=== PATIENT | male | born 1995 | race Caucasian/White ===

== ENCOUNTER 2018-08-05 23:01 | Inpatient (IN) | payer BC, OTHER, SELFPAY ==
[~2018-08-05] VITALS: Ht 185.4 cm; Wt 71.0 kg
[2018-08-05 23:47] LABS: HEMATOCRIT 47.2 % (42.0-52.0); HEMOGLOBIN 15.9 g/dl (13.5-17.5); MEAN CORPUSCULAR HEMOGLOBIN 30.1 pg (27.0-33.0); MEAN CORPUSCULAR HGB CONC 33.7 g/dl (32.0-36.5); MEAN CORPUSCULAR VOLUME 89.4 fl (80.0-96.0); PLATELET COUNT, AUTOMATED 267 10^3/uL (150-450); RED BLOOD COUNT 5.28 10^6/uL (4.30-6.10); WHITE BLOOD COUNT 5.6 10^3/uL (4.0-10.0)
[2018-08-06 00:30] LABS: AMPHETAMINES LEVEL URINE NEGATIVE (NEGATIVE); BARBITURATES URINE NEGATIVE (NEGATIVE); BENZODIAZEPINES URINE NEGATIVE (NEGATIVE); CANNABINOIDS URINE NEGATIVE (NEGATIVE); COCAINE METABOLITE URINE NEGATIVE (NEGATIVE); METHADONE URINE NEGATIVE (NEGATIVE); OPIATES URINE NEGATIVE (NEGATIVE); PHENCYCLIDINE URINE NEGATIVE (NEGATIVE)
[2018-08-06 00:38] LABS: ACETAMINOPHEN LEVEL < 2.0 UG/ML (10.0-30.0); ALBUMIN 4.5 GM/DL (3.2-5.2); ALT/SGPT 32 U/L (12-78); BILIRUBIN,DIRECT 0.3 MG/DL (0.0-0.2); BILIRUBIN,TOTAL 1.5 MG/DL (0.2-1.0); BLOOD UREA NITROGEN 18 MG/DL (7-18); CALCIUM LEVEL 9.2 MG/DL (8.5-10.1); CARBON DIOXIDE LEVEL 29 MEQ/L (21-32); CHLORIDE LEVEL 105 MEQ/L (98-107); ETHYL ALCOHOL (ETHANOL) < 0.003 % (0.000-0.010); GLOMERULAR FILTRATION RATE > 60.0 (>60); GLUCOSE, FASTING 84 MG/DL (70-100); POTASSIUM SERUM 3.8 MEQ/L (3.5-5.1); SALICYLATE LEVEL < 1.7 MG/DL (5.0-30.0); SODIUM LEVEL 142 MEQ/L (136-145); TOTAL PROTEIN 8.4 GM/DL (6.4-8.2)
[2018-08-06] MEDS ORDERED: MOM 30ML SUSPENSION UDC PO PRN (03:15)
[2018-08-06] MEDS ORDERED: traZODone 50 MG TAB PO PRN (03:15)
[2018-08-06] MEDS ORDERED: MAALOX 30 ML SUSP *UDC PO PRN (03:15)
[2018-08-06] MEDS ORDERED: ACETAMINOPHEN TAB 650MG DOSE (2X325MG) PO PRN (03:15)
[2018-08-06 04:12] VITALS: BP 144/96
[2018-08-06] MEDS: NICOTINE 21MG/24HR 1 EA TRANSDERMAL TD SCH (08:55)
--- NOTE | 2018-08-06 09:39 | HPEPDOC ---
[facility] Medical History & Physical Date of Admission Aug 06, 2018 History and Physical PCP: Jana Tucker MD ATTENDING: Dr. Reji Valenzuela HPI: 23yoM admitted to [facility] for unspecified depressive disorder, being medically examined today. No acute medical complaints today. Denies any fevers, chills, weakness, fatigue, DA SILVA, CP, SOB, cough, palpitations, abdominal pain, N/V/D or changes in bowel or bladder habits. 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 Tobacco use: Denies ETOH: Denies Illicit Drugs: Denies IV Drug Use: Denies Tattoos done unprofessionally: Denies FAMHX: Mother: Alive, well Father: Alive, well Siblings: One brother Alive, well Children: None Unexpected deaths due to medical reasons: None. ROS: As noted in HPI, otherwise 11pt ROS of systems reviewed and unremarkable. PE: GEN: 23 yo M, appears stated age. Well-nourished, well developed. No acute distress. Alert and oriented x 3. Pleasant, interactive. HEENT: Normocephalic, atraumatic. Pupils are equal, round, and reactive to light. Extraocular movements are intact. No nystagmus appreciated. Sclera are nonicteric. Conjunctiva without injection. Nose midline. Nasal turbinates without bogginess. EACs both patent BL. TMs both visualized and henderson with good cone of light, no bulging or erythema. No facial asymmetry. Moist mucous membran es. Dentition fair. Pharynx pink and moist, no cobblestoning. Neck supple, trachea midline. No lymphadenopathy or thyromegaly appreciated. CHEST: Regular rate and rhythm, +S1, +S2 LUNGS: Clear to auscultation bilaterally. No wheezes, rales, or rhonchi. Breathing appears symmetric and easy. Patient is speaking in full sentences. No accessory muscle use. ABD: Round, soft, non-tender, non-distended. +Bowel sounds throughout. No rebound or guarding. No costovertebral angle tenderness. EXT: Pulses 2+ bilaterally dorsalis pedis and radial. No lower extremity edema appreciated. SKIN: [place], dry, warm. Capillary refill <2sec. No rashes. NEURO: Alert and oriented x 3. Cranial nerves III-XII are intact. No focal deficits appreciated. EKG: pending A&P: 23yoM admitted to [facility] for unspecified depressive disorder 1. Psych. Plan per Psychiatry. Obtain baseline EKG to assure the safety of psychiatric medications as they can prolong the QT interval. 2. Abnormal TSH. Recheck TFTs in AM. 3. Follow up with PCP on discharge. 4. Staff member Paul present throughout exam. Vital Signs Vital Signs Date Time Temp Pulse Resp B/P (MAP) Pulse Ox O2 Delivery O2 Flow Rate FiO2 08/06/18 04:12 97.4 75 20 144/96 (112) Room Air 08/05/18 23:31 98 Laboratory Data Labs 24H Laboratory Tests 2 08/05/18 23:34: Urine Amphetamines Screen NEGATIVE, Urine Benzodiazepines Screen NEGATIVE, Urine Opiates Screen NEGATIVE, Urine Methadone Screen NEGATIVE, Urine Barbiturates Screen NEGATIVE, Urine Phencyclidine Screen NEGATIVE, Urine Cocaine Metabolite Screen NEGATIVE, Urine Cannabinoids Screen NEGATIVE 08/05/18 23:35: Nucleated Red Blood Cells % (auto) 0.0, Anion Gap 8, Glomerular Filtration Rate > 60.0, Calcium Level 9.2, Aspartate Amino Transf (AST/SGOT) 22, Alanine Aminotransferase (ALT/SGPT) 32, Alkaline Phosphatase 78, Total Bilirubin 1.5H, Direct Bilirubin 0.3H, Total Protein 8.4H, Albumin 4.5, Albumin/Globulin Ratio 1.15, Thyroid Stimulating Hormone (TSH) 4.010H, Salicylates Level < 1.7L, Acetaminophen Level < 2.0L, Ethyl Alcohol Level < 0.003 CBC/BMP Laboratory Tests 08/05/18 23:35 Red Blood Count 5.28, Mean Corpuscular Volume 89.4, Mean Corpuscular Hemoglobin 30.1, Mean Corpuscular Hemoglobin Concent 33.7, Red Cell Distribution Width 12.1 Home Medications No Active Prescriptions or Reported Meds Allergies Coded Allergies: Cephalosporins (Unverified Allergy, Intermediate, RASH, REDNESS, 08/06/18) Cephalexin (Verified Allergy, Unknown, 08/05/18) Apryl Gardner Aug 06, 2018 09:39
--- NOTE | 2018-08-06 14:28 | MHHPEPDOC ---
General Date Of Admission: Aug 06, 2018 Legal Status: 9.39 Chief Complaint "I'd be better off ". History of Present Illness HISTORY OF THE PRESENT ILLNESS: Patient is a 23 -year-old , Mennonite, male, with no previous psych history who was brought by PD to ED (mother attempted to drive pt but pt tried to grab the wheel of the car) after a meeting with orthodox elders and the medical transport specialist called by pt's mother due to pt exhibiting strange behavior and "trances" since . Family report to ED, that at meeting pt told medical transport specialist "I want to " and asked "am I saint filled or Satan filled." Per ED, PD stated pt nonverbal thru out transport to hospital and in ED pt uncooperative mostly and required prompting of brother Frederick to speak (brother appeared supportive and concerned) and brother encouraged him to pray to sooth pt and allow him to cooperate more with staff. 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 Brother had to call mother day of admission due to pt appearing to have several "trances" at work. Mother reported attempted to bring pt to therapy appt due to "trances" this past week and pt refused to go." Pt seen and having a hard time describing/explaining why he's here and how he's doing. Pt finally states that around he thought he could heard peopl e's thought's talking and that later became "a form of communication." States he doesn't feel like himself and "I just want me life back." Pt endorsing AH, thought insertion. Discussed with pt what schizophrenia is and how it's treated. Pt's ambulant about medication as against him beliefs/jainism and asking to try therapy first (provided education based on research and clinical experience that not very effective a all), call his medical transport specialist (Will provide pt with number). Denies SI/HI, hallucinations, delusions. Feels safe here. Psychiatric Review of Systems Depression (2 or more weeks): depressed mood, difficulty concentrating, appetite changes [place] (4 or more days of): denies Psychosis: auditory hallucination, delusions, paranoia, other (thought insertion) PTSD: denies Anxiety: situational anxiety, stressor related anxiety Anxiety/ 6 months or more of: restlessness, keyed up, difficulty concentrating Past Psychiatric History Previous Psychiatric Diagnosis: denies Previous Psychiatric Admissions: denies Suicide Attempts: denies Psychiatric Follow-up: denies Psychiatric medications: denies Past Medical History Medical Problems denies Head Injury: No Seizures: No Hospitalizations: No Surgeries: No Family Medical/Psychiatric HX Medical Problems noncontributory Psychiatric Disorders: No Addiction: No Suicide Attemps/Completions: No Addiction History denies Social History Childhood: born and raised [facility] by mother, has an older brother, father incarcerated when pt 18mo old (1x/yr visit; out now and only sporadic contact), close/support community and orthodox Abuse/Trauma:lives Current Living Situation: lives with family in [place] Education: high school w/in [employer] 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 Social Support: mother, brother, community, orthodox, medical transport specialist. Legal: denies Marital: single, never , never in a relationship per family(ED records family reported pt attempted to date a girl 1.5yrs ago but orthodox against it and pt doesn't like to go against the orthodox.) Mental Status Examination General Appearance: well groomed, appears stated age, hospital scubs/clothing Build: average Demeanor: withdrawn, guarded, other (scared) Eye Contact: poor Activity: anxious Behavior: cooperative, other (very anxious as completely doesn't understand illness and against jainism) Speech: clear, reg/rate,rhythm,volume, non-spontaneous Mood: anxious Mood "I want my life back" Affect: constricted, appropriate, congruent, anxious Thought Process: logical/linear, other (in conflict based on what I'm telling him about mental health and his islam beliefs) Thought Content (Delusions): paranoia, delusions, other (AH, thought insertion and broadcasting) Thought Content (Other): preoccupied, guarded, ideas of reference, internal- stimuli, appears paranoid Thought Content (Aggressive): none reported Perception (Hallucinations): auditory Perception (Other): none reported Cognition (Impairment of): attention/concentration, ability to abstract Cognition(Intelligence Est.): average Oriented: Awake, Alert, Oriented times three Insight: poor Judgment: Poor Psychosis: Abstract Thinking, Psychotic Perceptions Diagnoses Psychosis Unspecified R/O first break paranoid schizophrenia Assessment Pt with no previous psych history, raised in the [facility] community, admitted for bizarre behavior, AH, thought insertion, broadcasting, paranoia, m istrustful, impulsive behavior at home that has been getting worse since Jacque. Pt in need of mental health education (diagnosis/treatment) and medication management to improve symptoms. Pt confused regarding diagnosis and ambivalent about medication wanting to speak with medical transport specialist first. Initial Treatment Plan 1. Patient was admitted on a status. 2. Complete history was obtained. 3. With patients permission, family will be contacted and database will be expanded. 4. Patients medication regimen will be reviewed and changed accordingly. 5. Patient will be provided with protected environment. 6. Patient will be treated with individual, group, and milieu therapies. 7. Patient will receive supportive psych-education. 8. Discharge planning will commence immediately. 9. Outpatient follow-up treatment will be strongly recommended. 10. The initial treatment plan will focus initially on: * Depression. * Risk for suicide. * Substance abuse. 11. invega 3mg bid, atarax 10mg q6hr prn anxiety ESTIMATED LENGTH OF STAY: 7-9 DAYS. TIME SPENT COUNSELING AND COORDINATING INITIAL CARE: 60 minutes. Vital Signs Vital Signs Date Time Temp Pulse Resp B/P (MAP) Pulse Ox O2 Delivery O2 Flow Rate FiO2 08/06/18 04:12 97.4 75 20 144/96 (112) Room Air 08/05/18 23:31 98 Laboratory Data 24H Labs Laboratory Tests 2 08/05/18 23:34: Urine Amphetamines Screen NEGATIVE, Urine Benzodiazepines Screen NEGATIVE, Urine Opiates Screen NEGATIVE, Urine Methadone Screen NEGATIVE, Urine Barbiturates Screen NEGATIVE, Urine Phencyclidine Screen NEGATIVE, Urine Cocaine Metabolite Screen NEGATIVE, Urine Cannabinoids Screen NEGATIVE 08/05/18 23:35: Nucleated Red Blood Cells % (auto) 0.0, Anion Gap 8, Glomerular Filtration Rate > 60.0, Calcium Level 9.2, Aspartate Amino Transf (AST/SGOT) 22, Alanine Aminotransferase (ALT/SGPT) 32, Alkaline Phosphatase 78, Total Bilirubin 1.5H, Direct Bilirubin 0.3H, Total Protein 8.4H, Albumin 4.5, Albumin/Globulin Ratio 1.15, Thyroid Stimulating Hormone (TSH) 4.010H, Salicylates Level < 1.7L, Acetaminophen Level < 2.0L, Ethyl Alcohol Level < 0.003 CBC/BMP Laboratory Tests 08/05/18 23:35 Red Blood Count 5.28, Mean Corpuscular Volume 89.4, Mean Corpuscular Hemoglobin 30.1, Mean Corpuscular Hemoglobin Concent 33.7, Red Cell Distribution Width 12.1 Medications No Active Prescriptions or Reported Meds Allergies Coded Allergies: Cephalosporins (Unverified Allergy, Intermediate, RASH, REDNESS, 08/06/18) Cephalexin (Verified Allergy, Unknown, 08/05/18) LUISA THOMAS DO Aug 06, 2018 14:21
[2018-08-06 18:00] VITALS: BP 120/74
[2018-08-06] MEDS: PALIPERIDONE 3 MG ER TAB (INVEGA) PO SCH (21:19)
[2018-08-07 06:06] VITALS: BP 104/59
[2018-08-07 07:29] LABS: FREE THYROXINE INDEX 3.1 % (1.4-3.8); THYROID STIMULATING HORMONE 1.94 uIU/ML (0.358-3.740); THYROXINE (T4) 9.1 UG/DL (4.5-12.0)
[2018-08-07] MEDS: PALIPERIDONE 3 MG ER TAB (INVEGA) PO SCH ×2 (08:44→21:15)
[2018-08-07] MEDS: NICOTINE 21MG/24HR 1 EA TRANSDERMAL TD SCH (08:45)
--- NOTE | 2018-08-07 11:30 | MHIPNPDOC ---
[facility] Progress Note Progress Note DATE OF SERVICE: 08/07/18 HISTORY: Patient is a 23 -year-old , Mennonite, male, with no previous psych history who was brought by PD to ED (mother attempted to drive pt but pt tried to grab the wheel of the car) after a meeting with quaker elders and the lean specialist called by pt's mother due to pt exhibiting strange behavior and "trances" since . Family report to ED, that at meeting pt told lean specialist "I want to " and asked "am I saint filled or Satan filled." Per ED, PD stated pt nonverbal thru out transport to hospital and in ED pt uncooperative mostly and required prompting of brother Frederick to speak (brother appeared supportive and concerned) and brother encouraged him to pray to sooth pt and allow him to cooperate more with staff. 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 Brother had to call mother day of admission due to pt appearing to have several "trances" at work. Mother reported attempted to bring pt to therapy appt due to "trances" this past week and pt refused to go." Pt seen and having a hard time describing/explaining why he's here and how he's doing. Pt finally states that around he thought he could heard people's thought's talking and that later became "a form of communication." States he doesn't feel like himself and "I just want me life back." Pt endorsing AH, thought insertion. Discussed with pt what schizophrenia is and how it's treated. Pt's ambulant about medication as against him beliefs/yarsanism and asking to try therapy first (provided education based on research and clinical experience that not very effective a all), call his lean specialist (Will provide pt with number). Denies SI/HI, hallucinations, delusions. Feels safe here. VITAL SIGNS: See below. NEW TEST RESULTS: See below. CURRENT MEDICATIONS: See below. MENTAL STATUS EXAMINATION: General Appearance: well groomed, appears stated age, hospital scrubs/clothing Build: average Demeanor: cooperative and less guarded/withdrawn Eye Contact: poor Activity: less anxious Behavior: cooperative Speech: clear, reg/rate,rhythm,volume, spontaneous Mood: less anxious, improved range Mood "ok" Affect: appropriate, congruent, less anxious Thought Process: logical/linear, other (less in conflict based on what I'm tell ing him about mental health and his anglican beliefs) Thought Content (Delusions): less paranoia and delusions, other (improved AH, thought insertion and broadcasting) Thought Content (Other): less guarded, less internal-stimuli, less paranoid Thought Content (Aggressive): none reported Perception (Hallucinations): improved auditory Perception (Other): none reported Cognition (Impairment of): none reported Cognition(Intelligence Est.): average Oriented: Awake, Alert, Oriented times three Insight: fair Judgment: fair Psychosis: Improved Psychotic Perceptions DIAGNOSES: Psychosis Unspecified R/O first break paranoid schizophrenia ASSESSMENT:Pt compliant with invega. Pt seen and states that he's feeling better, more calm and able to think more clearly. Denies AH and doesn't appear to be responding to internal stimuli. Is tolerating invega, denies side effects, feels it's beneficial. States his mother and brother visited him yesterday which was nice. Read edu material regarding schizophrenia and treatment that he was provided yesterday and states was helpful to learn that he's not the only one making him feel less tormented by previous thoughts feelings, but comforted by that fact others experience the same thing he is. States he slept well last night. He is attending groups, socializing, and playing games with peers that he's finding helpful. 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 When asked pt about his experience he said it was good and that he liked helping others, denied any negative effects from it. Mother is very supportive of pt and his treatment/meds. He denies insomnia, SI/HI. Pt feels safe here. MANAGEMENT PLAN: continue current plan Medications: invega 3mg bid atarax 10mg q6hr prn anxiety TIME SPENT: 30 minutes. Vital Signs Vital Signs Date Time Temp Pulse Resp B/P (MAP) Pulse Ox O2 Delivery O2 Flow Rate FiO2 08/07/18 06:06 97.4 55 14 104/59 (74) Room Air 08/05/18 23:31 98 Laboratory Data 24H Labs Laboratory Tests 2 08/07/18 06:38: Thyroid Stimulating Hormone (TSH) 1.940, Free Thyroxine Index 3.1, Thyroxine ( T4) 9.1, Triiodothyronine (T3) Uptake 34 Current Medications Current Medications Acetaminophen (Tylenol Tab) 650 mg Q6HP PRN PO HEADACHE or DISCOMFORT; Start 08/06/18 at 03:15 Al Hydrox/Mg Hydrox/Simethicone (Mylanta) 30 ml Q4HP PRN PO HEARTBURN/INDIGESTION; Start 08/06/18 at 03:15 Home Med (Med Rec Complete!) ASDIRECTED XX ; Start 08/06/18 at 03:15; Stop 08/06/18 at 03:19; Status DC Magnesium Hydroxide (Milk Of Magnesia) 30 ml DAILYPRN PRN PO CONSTIPATION; Start 08/06/18 at 03:15 Nicotine (Nicoderm Cq 21mg) 1 patch DAILY TD ; Start 08/06/18 at 09:00; Stop 08/07/18 at 08:59; Status DC Paliperidone (Invega) 3 mg QAM PO Last administered on 08/07/18at 08:44; Start 08/07/18 at 09:00 Paliperidone (Invega) 3 mg QHS PO Last administered on 08/06/18at 21:19; Start 08/06/18 at 21:00 Trazodone HCl (Desyrel) 50 mg QHSP PRN PO INSOMNIA; Start 08/06/18 at 03:15 Allergies Coded Allergies: Cephalosporins (Unverified Allergy, Intermediate, RASH, REDNESS, 08/06/18) Cephalexin (Verified Allergy, Unknown, 08/05/18) LUISA THMOAS DO Aug 07, 2018 11:30
[2018-08-07 18:00] VITALS: BP 131/81
--- NOTE | 2018-08-07 21:48 | ECGEPIP ---
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 Electronically Signed On 08-07-2018 21:48:10 EST by Javed Gallardo
[2018-08-08 06:00] VITALS: BP 126/60
[2018-08-08] MEDS: PALIPERIDONE 3 MG ER TAB (INVEGA) PO SCH ×2 (08:55→21:42)
--- NOTE | 2018-08-08 17:44 | MHIPN ---
DATE: 08/08/2018 CHIEF COMPLAINT: Says feels better. SUBJECTIVE: Seen for followup, he is seen in the presence of staff. Says feels better, and that last night went well, he says his sleep has improved, appetite is good, suggests appetite was essentially unchanged. Says the voices that he has heard have diminished, he says they have diminished quite considerably, and that he recognizes them as "not real." They have been those associated with people he knows, and says could hear them or feel them, talk negatively about him, and others would talk positively. He says he had felt they were able to control his thoughts, but no longer feels so, says matters changed when he began recognizing that they were "not real." Says could hear the lord as well as the devil, and with further inquiry, suggested that did not hear them literally, but in the context of the people he knew, who he thought could read into his thoughts. Did not describe any thought broadcasting on his part. Says has not been well for the last month or so, but feels better now. Prior to these difficulties, says did well, had no major emotional problems. MENTAL STATUS EXAMINATION: He is neat, he is cooperative. There is no agitation, no psychomotor retardation. Good eye contact. Affect broad, appears relaxed. Denies any suicidal thoughts or intents. No homicidal ideas or intents. At present does not appear to be internally preoccupied, no firm delusional ideations elicited. Cognition grossly intact. Judgment and insight remain compromised. ASSESSMENT: Unspecified psychotic disorder. Rule out brief psychotic disorder. It is possible the patient does not have a primary psychotic disorder, it is too soon to tell, just given this history, and the review of the chart. Brief psychotic disorder would also need to be considered. Schizophrenia is a possibility, but these symptoms are quite new, seemingly, and his premorbid functioning has been quite good. There is no known family history, though unsure of father's side for the history. The nature of the hallucinations versus aspect of thought insertion were difficult to differentiate at times. PLAN: Continue current care, observations, obtain collateral information, and I would suggest considering eventually decreasing the Invega, and reassessing its indications. He is currently on Invega at 6 mg a day in divided doses. Encourage his participation in activities in the unit. Upon discharge, patient will have to be followed closely, and reassessed for the possibility of tapering and discontinuing the antipsychotic. Vital signs: Blood pressure 126/60, pulse 62, temperature 98.2.
[2018-08-08 18:00] VITALS: BP 120/70
[2018-08-09 06:00] VITALS: BP 117/68
[2018-08-09] MEDS: PALIPERIDONE 3 MG ER TAB (INVEGA) PO SCH ×2 (09:08→21:49)
[2018-08-09 18:00] VITALS: BP 126/74
[2018-08-10 06:07] VITALS: BP 109/65
[2018-08-10] MEDS: PALIPERIDONE 3 MG ER TAB (INVEGA) PO SCH ×2 (08:08→22:00)
--- NOTE | 2018-08-10 09:35 | MHIPN ---
DATE: 08/06/2018 CHIEF COMPLAINT: Says she is okay. SUBJECTIVE: Seen for follow-up, indicates had a good night, his mood has been good, feels less anxious, says had a total of about eight visitors, family as well as extended family, says that went well. Says has not had any experiences of the past, sensations that others are inserting thoughts in him, but does say that that may have had happened to a mild extent, but he was able to push the thought aside. MENTAL STATUS EXAMINATION Neat and cooperative. No agitation. He is coherent. Affect reactive, broad. No evidence of any thoughts of harming himself or anyone else, he does not appear to be internally preoccupied at present, cognition grossly intact. Judgment and insight fair, thought possibly still compromised. ASSESSMENT: Unspecified psychotic disorder. Rule out brief psychotic disorder. Rule out major depression with psychosis. PLAN: Continue current care and observation. He will see the treatment team as well as the psychiatrist tomorrow. He is to be encouraged to participate in activities in the unit. VITAL SIGNS: These are as listed. Blood pressure 117/68, pulse 63, temperature 98.
--- NOTE | 2018-08-10 09:54 | MHIPNPDOC ---
[facility] Progress Note Progress Note DATE OF SERVICE: 08/10/18 HISTORY: Patient is a 23 -year-old , Mennonite, male, with no previous psych history who was brought by PD to ED (mother attempted to drive pt but pt tried to grab the wheel of the car) after a meeting with lutheran elders and the javascript application developer called by pt's mother due to pt exhibiting strange behavior and "trances" since . Family report to ED, that at meeting pt told javascript application developer "I want to " and asked "am I saint filled or Satan filled." Per ED, PD stated pt nonverbal thru out transport to hospital and in ED pt uncooperative mostly and required prompting of brother Frederick to speak (brother appeared supportive and concerned) and brother encouraged him to pray to sooth pt and allow him to cooperate more with staff. 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 Brother had to call mother day of admission due to pt appearing to have several "trances" at work. Mother reported attempted to bring pt to therapy appt due to "trances" this past week and pt refused to go." Pt seen and having a hard time describing/explaining why he's here and how he's doing. Pt finally states that around he thought he could heard people's thought's talking and that later became "a form of communication." States he doesn't feel like himself and "I just want me life back." Pt endorsing AH, thought insertion. Discussed with pt what schizophrenia is and how it's treated. Pt's ambulant about medication as against him beliefs/moravian and asking to try therapy first (provided education based on research and clinical experience that not very effective a all), call his javascript application developer (Will provide pt with number). Denies SI/HI, hallucinations, delusions. Feels safe here. VITAL SIGNS: See below. NEW TEST RESULTS: See below. CURRENT MEDICATIONS: See below. MENTAL STATUS EXAMINATION: General Appearance: well groomed, appears stated age, hospital scrubs/clothing Build: average Demeanor: cooperative Eye Contact: fair Activity: calm Behavior: cooperative Speech: clear, reg/rate,rhythm,volume, spontaneous Mood: l improved range Mood "ok" Affect: appropriate, congruent Thought Process: logical/linear Thought Content (Delusions): denies paranoia and delusions, other (denies AH, thought insertion and broadcasting) Thought Content (Other): none reported Thought Content (Aggressive): none reported Perception (Hallucinations): none reported Perception (Other): none reported Cognition (Impairment of): none reported Cognition(Intelligence Est.): average Oriented: Awake, Alert, Oriented times three Insight: fair Judgment: fair Psychosis: Improved Psychotic Perceptions DIAGNOSES: Psychosis Unspecified R/O first break paranoid schizophrenia ASSESSMENT:Pt compliant with invega. Pt seen and states that he's doing well, had a good weekend with family visitors and playing chess with another peer pt on the unit. Denies AH and doesn't appear to be responding to internal stimuli. Is tolerating invega, denies side effects, feels it's beneficial. States he slept well last night. He is attending groups, socializing, and playing games with peers that he's finding helpful. Mother is very supportive of pt and his treatment/meds. He denies insomnia, SI/HI. Pt feels safe here. MANAGEMENT PLAN: continue current plan Medications: invega 3mg bid atarax 10mg q6hr prn anxiety TIME SPENT: 30 minutes. Vital Signs Vital Signs Date Time Temp Pulse Resp B/P (MAP) Pulse Ox O2 Delivery O2 Flow Rate FiO2 08/10/18 06:07 97.2 57 12 109/65 (80) Room Air 08/05/18 23:31 98 Current Medications Current Medications Acetaminophen (Tylenol Tab) 650 mg Q6HP PRN PO HEADACHE or DISCOMFORT; Start 08/06/18 at 03:15 Al Hydrox/Mg Hydrox/Simethicone (Mylanta) 30 ml Q4HP PRN PO HEARTBURN/INDIGESTION; Start 08/06/18 at 03:15 Home Med (Med Rec Complete!) ASDIRECTED XX ; Start 08/06/18 at 03:15; Stop 08/06/18 at 03:19; Status DC Magnesium Hydroxide (Milk Of Magnesia) 30 ml DAILYPRN PRN PO CONSTIPATION; Start 08/06/18 at 03:15 Nicotine (Nicoderm Cq 21mg) 1 patch DAILY TD ; Start 08/06/18 at 09:00; Stop 08/07/18 at 08:59; Status DC Paliperidone (Invega) 3 mg QAM PO Last administered on 08/10/18at 08:08; Start 08/07/18 at 09:00 Paliperidone (Invega) 3 mg QHS PO Last administered on 08/09/18at 21:49; Start 08/06/18 at 21:00 Trazodone HCl (Desyrel) 50 mg QHSP PRN PO INSOMNIA; Start 08/06/18 at 03:15 Allergies Coded Allergies: Cephalosporins (Unverified Allergy, Intermediate, RASH, REDNESS, 08/06/18) Cephalexin (Verified Allergy, Unknown, 08/05/18) LUISA THOMAS DO Aug 10, 2018 9:54 am
[2018-08-10 18:00] VITALS: BP 122/62
[2018-08-11 06:43] VITALS: BP 104/55
[2018-08-11] MEDS: PALIPERIDONE 3 MG ER TAB (INVEGA) PO SCH ×2 (09:16→20:59)
[2018-08-11 18:00] VITALS: BP 106/58
[2018-08-12 06:34] VITALS: BP 95/50
[2018-08-12] MEDS: PALIPERIDONE 3 MG ER TAB (INVEGA) PO SCH (09:12)
--- NOTE | 2018-08-12 09:19 | MHDSPDOC ---
[facility] Discharge Summary Discharge Summary DATE OF ADMISSION: Aug 06, 2018 at 3:11 am DATE OF DISCHARGE: Aug 12, 2018 DISCHARGE DIAGNOSES: Psychosis Unspecified R/O first break paranoid schizophrenia REASON FOR ADMISSION: Patient is a 23 -year-old , Mennonite, male, with no previous psych history who was brought by PD to ED (mother attempted to drive pt but pt tried to grab the wheel of the car) after a meeting with jewish elders and the facilities director called by pt's mother due to pt exhibiting strange behavior and "trances" since . Family report to ED, that at meeting pt told facilities director "I want to " and asked "am I saint filled or Satan filled." Per ED, PD stated pt nonverbal thru out transport to hospital and in ED pt uncooperative mostly and required prompting of brother Frederick to speak (brother appeared supportive and concerned) and brother encouraged him to pray to sooth pt and allow him to cooperate more with staff. 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 Brother had to call mother day of admission due to pt appearing to have several "trances" at work. Mother reported attempted to bring pt to therapy appt due to "trances" this past week and pt refused to go." Pt seen and having a hard time describing/explaining why he's here and how he's doing. Pt finally states that around he thought he could heard people's thought's talking and that later became "a form of communication." States he doesn't feel like himself and "I just want me life back." Pt endorsing AH, thought insertion. Discussed with pt what schizophrenia is and how it's treated. Pt's ambulant about medication as against him belie fs/lutheran and asking to try therapy first (provided education based on research and clinical experience that not very effective a all), call his facilities director (Will provide pt with number). Denies SI/HI, hallucinations, delusions. Feels safe here. CONSULTANTS INVOLVED: none TREATMENT AND PROGRESS ON THE UNIT : Pt was admitted to [facility], seen for psychiatric assessment and invega 3mg bid for psychosis. He tolerated his invega well and felt it was beneficial. Stated he liked it and would remain compliant on it. He declined invega sustenna when it was offered to him numerous times and mother contacted by d/c order planner and stated she would make sure he was compliant on it after discharge. He was provided vistaril 10mg q6hr prn anxiety and trazodone 50mg qhs prn insomnia. Pt found his medications beneficial and tolerated them well. He attended groups daily during his stay. His symptoms improved with treatment. On day of discharge he denied depression, anxiety, insomnia, SI/HI, hallucinations, delusions. He was discharged home after family meeting with his mother with follow-up at [facility]. He felt safe for discharge. DISCHARGE ASSESSMENT: Pt compliant with invega. Pt seen and states that he's doing well, and looking forward to going home with his mother today. Denies AH and doesn't appear to be responding to internal stimuli. Is tolerating invega, denies side effects, feels it's beneficial. Agreeable to maintaining compliance. States he slept well last night. He is attending groups, socializing, and playing games with peers that he's finding helpful. Mother is very supportive of pt and his treatment/meds. He denies epression, anxiety, insomnia, SI/HI, hallucinations, delusions, paranoia. Pt feels safe to be discharged home with his mother. MENTAL STATUS EXAMINATION ON DISCHARGE: General Appearance: well groomed, appears stated age, hospital scrubs/clothing Build: average Demeanor: cooperative Eye Contact: good Activity: calm Behavior: cooperative Speech: clear, reg/rate,rhythm,volume, spontaneous Mood: euthymic, full, bright Mood "good" Affect: appropriate, congruent, euthymic, bright Thought Process: logical/linear Thought Content (Delusions): none reported, denies paranoia and delusions, other (denies AH, thought insertion and broadcasting) Thought Content (Other): none reported Thought Content (Aggressive): none reported Perception (Hallucinations): none reported Perception (Other): none reported Cognition (Impairment of): none reported Cognition(Intelligence Est.): average Oriented: Awake, Alert, Oriented times three Insight: good Judgment: good Psychosis: none reported MEDICATIONS ON DISCHARGE: invega 3mg bid atarax 10mg q6hr prn anxiety PLAN/FOLLOWUP ARRANGEMENTS: D/c home with his mother with follow-up at [facility]. The amount of time spent in the coordination of care for this patient was approximately 30 minutes. Vital Signs/I&Os Vital Signs Date Time Temp Pulse Resp B/P (MAP) Pulse Ox O2 Delivery O2 Flow Rate FiO2 08/12/18 06:34 98.2 59 12 95/50 (65) 08/10/18 06:07 Room Air Medications No Active Prescriptions or Reported Meds Allergies Coded Allergies: Cephalosporins (Unverified Allergy, Intermediate, RASH, REDNESS, 08/06/18) Cephalexin (Verified Allergy, Unknown, 08/05/18) LUISA THOMAS DO Aug 12, 2018 9:19 am
[2018-08-12] MEDS ORDERED: PALI1TAB2 PO (09:22)
[2018-08-12] MEDS ORDERED: RISP2TAB3 PO (14:59)
== END 2018-08-12 14:45 | disposition home or self-care (01) | DRG 751 ==
LOC: M ED 23:01 → M ED INP 08-06 03:11 → M PSY 08-06 03:55
PROVIDERS: ADMIT Psychiatry & Neurology Psychiatry; ATTEND Psychiatry & Neurology Psychiatry
DX: F29 Unspecified psychosis not due to a substance or known physiological condition (principal); F20.0 Paranoid schizophrenia; Z88.1 Allergy status to other antibiotic agents

== ENCOUNTER 2019-06-15 17:53 | Inpatient (IN) | payer SELFPAY ==
[~2019-06-15] VITALS: Ht 182.9 cm; Wt 75.0 kg
[~2019-06-15 17:53] MED LIST: PALI1TAB2 PO; RISP2TAB3 PO
[2019-06-15 18:58] LABS: HEMATOCRIT 45.5 % (42.0-52.0); MEAN CORPUSCULAR HEMOGLOBIN 30.7 pg (27.0-33.0); MEAN CORPUSCULAR HGB CONC 35.2 g/dl (32.0-36.5); MEAN CORPUSCULAR VOLUME 87.2 fl (80.0-96.0); PLATELET COUNT, AUTOMATED 222 10^3/uL (150-450); RED BLOOD COUNT 5.22 10^6/uL (4.30-6.10); WHITE BLOOD COUNT 5.5 10^3/uL (4.0-10.0)
[2019-06-15 19:32] LABS: ALBUMIN 4.2 GM/DL (3.2-5.2); ALT/SGPT 36 U/L (12-78); BILIRUBIN,DIRECT 0.4 MG/DL (0.0-0.2); BILIRUBIN,TOTAL 2.2 MG/DL (0.2-1.0); BLOOD UREA NITROGEN 18 MG/DL (7-18); CALCIUM LEVEL 8.9 MG/DL (8.5-10.1); CARBON DIOXIDE LEVEL 26 MEQ/L (21-32); CHLORIDE LEVEL 105 MEQ/L (98-107); CREATININE FOR GFR 1.27 MG/DL (0.70-1.30); GLOMERULAR FILTRATION RATE > 60.0 (>60); GLUCOSE, FASTING 81 MG/DL (70-100); POTASSIUM SERUM 3.7 MEQ/L (3.5-5.1); SODIUM LEVEL 140 MEQ/L (136-145); TOTAL PROTEIN 7.6 GM/DL (6.4-8.2)
[2019-06-15 19:33] LABS: ACETAMINOPHEN LEVEL < 2.0 UG/ML (10.0-30.0); ETHYL ALCOHOL (ETHANOL) < 0.003 % (0.000-0.010); SALICYLATE LEVEL < 1.7 MG/DL (5.0-30.0)
[2019-06-15 20:57] LABS: AMPHETAMINES LEVEL URINE NEGATIVE (NEGATIVE); BARBITURATES URINE NEGATIVE (NEGATIVE); BENZODIAZEPINES URINE NEGATIVE (NEGATIVE); CANNABINOIDS URINE NEGATIVE (NEGATIVE); COCAINE METABOLITE URINE NEGATIVE (NEGATIVE); METHADONE URINE NEGATIVE (NEGATIVE); OPIATES URINE NEGATIVE (NEGATIVE); PHENCYCLIDINE URINE NEGATIVE (NEGATIVE)
[2019-06-15] MEDS ORDERED: ACETAMINOPHEN TAB 650MG DOSE (2X325MG) PO PRN (23:45)
[2019-06-15] MEDS ORDERED: MOM 30ML SUSPENSION UDC PO PRN (23:45)
[2019-06-15] MEDS ORDERED: MAALOX 30 ML SUSP *UDC PO PRN (23:45)
[2019-06-15] MEDS ORDERED: traZODone 50 MG TAB PO PRN (23:45)
[2019-06-16 06:32] VITALS: BP 106/57
--- NOTE | 2019-06-16 10:21 | MHHPEPDOC ---
[facility] History & Physical History and Physical DATE OF ADMISSION: Jun 15, 2019 at 23:37 New Patient Willian Mclean MRN: N/A Date of : N/A Date of Service: 06/16/2019 Chief Complaint "God bless you." History of Present Illness The patient a 24-year-old man who was brought in after presenting somewhat bizarrely. He has a history of schizophrenia and was notably saying suicidal statements and laying in the snow in a bizarre display. He was brought in and ad mitted. On initial presentation when I had met with him, he was fairly well put together and described the situation as him becoming "angry." He had been very amenable in the unit friendly and sociable. He does at times have some bizarre thoughts; however, he reports that he is not interested in treatment and has not demonstrated any dangerousness or distorted ideation to us on the unit. The patient stated that he had had voices in the past, but he is not currently having them and that he does have at time some low mood, but is not sustained and screen is negative for depression. Review Of Systems Depression: The patient denies any episodes of unprovoked depressed mood associated with neurovegetative symptoms lasting longer than 2 weeks with symptoms present nearly everyday. Anxiety: The patient denies any excessive worry associated with physical symptoms. They deny any experience of discreet panic in the past. [place]: The patient denies any episodes of euphoria/dysphoria associated with decreased need for sleep, hedonism, talkatively or impulsivity lasting longer than 5 days. Psychotic: Reports as above. Trauma: The patient denies any traumatic events associated with nightmares or intrusive thoughts. Borderline: The patient screens negative for borderline personality at this junction. Past Psychiatric History One previous inpatient admission, diagnosis of schizophrenia, on no current meds, denies any suicide attempts. Allergies Please see below. Family Psychiatric History The patient denies/is unaware any history of mental health history including addictions and suicide. Social History The patient is a never man with no children. He is part of the [place] community, very religiously connected, lives with 2 other roommates. He currently works. He had completed high school as gainfully employed. He has good relationship with his mother and father who live in [place] and states that he has good relationships with his one older brother. No history of trauma or abuse that he notes. Substance Abuse History The patient denies any excessive alcohol use, tobacco or illicit drug use, denies history of substance use treatment. Medical History Patient has no significant past medical history. Mental Status Examination General: Well dressed with good hygiene Speech: Spontaneous and fluid Thought processes: Linear and logical MSK: Smooth and coordinated gait, no signs of tremors or involuntary orofacial movements Thought content: Future orientated Abstract reasoning, and computation: Intact Description of associations: Intact Description of abnormal or psychotic thoughts: Denies any suicidal or homicidal ideation. Denies any auditory or visual hallucinations. Does not appear to be responding to internal stimuli. Does not appear to be endorsing any bizarre or paranoid ideation. Judgment: fair Insight: fair Orientation: Alert and orientated 3 Cognition: Grossly normal Recent and remote memory: Intact Attention span and concentration: Intact Fund of knowledge: Adequate Mood: "okay" Affect: Euthymic with a full range Diagnoses Unspecified psychotic disorder. Assessment and Plan Unspecified psychotic: The patient reports that he is not interested in treatment. He does not have any aggressive behaviors or any signs or symptoms that can be used against him in order for a treatment of our objection. He does not wish to say and at this time does not meet involuntary criteria for extension of his admission under any sense as he has been fairly well behaved and put together on our unit. Disposition Discharge tomorrow. Problem List 1. Altered thoughts. Initial Treatment Plan 1. Patient was admitted on a 9.39 legal status. 2. Complete history was obtained. 3. With patients permission, family will be contacted and database will be expanded. 4. Patients medication regimen will be reviewed and changed accordingly. 5. Patient will be provided with protected environment. 6. Patient will be treated with individual, group, and milieu therapies. 7. Patient will receive supportive psych-education. 8. Discharge planning will commence immediately. 9. Outpatient follow-up treatment will be strongly recommended. 10. The initial treatment plan will focus initially on: Estimated Length Of Stay 2 days. Time Spent 70 minutes. Friday Vital Signs Vital Signs Date Time Temp Pulse Resp B/P (MAP) Pulse Ox O2 Delivery O2 Flow Rate FiO2 06/16/19 08:13 Room Air 06/16/19 06:32 97.5 61 12 106/57 (73) 06/15/19 23:18 98 Laboratory Data 24H Labs Laboratory Tests 2 06/15/19 18:43: Nucleated Red Blood Cells % (auto) 0.0, Anion Gap 9, Glomerular Filtration Rate > 60.0, Calcium Level 8.9, Total Bilirubin 2.2H, Direct Bilirubin 0.4H, Aspartate Amino Transf (AST/SGOT) 29, Alanine Aminotransferase (ALT/SGPT) 36, Alkaline Phosphatase 78, Total Protein 7.6, Albumin 4.2, Albumin/Globulin Ratio 1.24, Thyroid Stimulating Hormone (TSH) 1.170, Salicylates Level < 1.7L, Acetaminophen Level < 2.0L, Ethyl Alcohol Level < 0.003 06/15/19 20:12: Urine Opiates Screen NEGATIVE, Urine Methadone Screen NEGATIVE, Urine Barbiturates Screen NEGATIVE, Urine Phencyclidine Screen NEGATIVE, Urine Amphetamines Screen NEGATIVE, Urine Benzodiazepines Screen NEGATIVE, Urine Cocaine Metabolite Screen NEGATIVE, Urine Cannabinoids Screen NEGATIVE CBC/BMP Laboratory Tests 06/15/19 18:43 Medications No Active Prescriptions or Reported Meds Allergies Coded Allergies: cephalexin (Verified Allergy, Mild, rash/redness, 06/15/19) MALKA MULLIGAN DO Jun 16, 2019 10:21
--- NOTE | 2019-06-16 18:47 | HPE ---
DATE OF ADMISSION: 06/16/2019 CHIEF COMPLAINT: Admitted to inpatient mental health unit for depression, suicidal ideation. HISTORY OF PRESENT ILLNESS: This is a 24-year-old male with no medical history, admitted previously for depression, suicidal ideation, now with recurrent admission. He has no complaints. No fever or chills, weight gain or weight loss, changes in appetite, eye pain, discharge, diplopia, blurred vision, no nasal congestion or rhinorrhea. Denies ear pain, discharge, tinnitus, sore throat, cough, fever, chills, shortness of breath, chest pain, pressure, tightness, lightheadedness, or dizziness. Sadiq any nausea, vomiting, diarrhea, abdominal pain, constipation, upper or lower extremity weakness. Admits to having depression and a history of suicidal ideation. Denies dysuria, urgency, frequency. PAST MEDICAL HISTORY: 1. Depression. 2. Suicidal ideation. PAST SURGICAL HISTORY: None. SOCIAL HISTORY: He lives in [facility]. Single, Previously worked in [email or web address]. Denies illicit drug use, tobacco, or recreational drug use. FAMILY HISTORY: Mother and father are in the 40s, alive and well. No medical problems. HOSPITAL MEDICATIONS: - trazodone 50 mg at bedtime as needed for insomnia - acetaminophen 650 every 6 as needed for headache - milk of magnesia 30 mL daily as needed for constipation - Mylanta 30 mL by mouth every 4 hours for heartburn and indigestion REVIEW OF SYSTEMS: Per history of present illness (HPI). A 12-point system otherwise negative. PHYSICAL EXAMINATION: Temperature 97.5, pulse 61, respiratory rate 12, blood pressure 106/57, 98% on room air. GENERAL: Patient is awake, alert, oriented times three, answering questions appropriately. He has no icterus, jaundice. LUNGS: Clear to auscultation. No wheezes, rales, or rhonchi. HEART: S1, S2, sinus rhythm. ABDOMEN: Soft, nontender, nondistended. Positive bowel sounds times four quadrants. No rebound. No guarding. EXTREMITIES: No clubbing, cyanosis, or any pitting edema. LABORATORY DATA: On June 15, white count 5.5, hemoglobin 16, hematocrit 45, platelet count 222. Sodium 140, potassium 3.7, chloride 105, bicarbonate 26, BUN 18, creatinine 1.27, glucose 81, calcium 8.9. Total bilirubin 2.2, direct bilirubin 0.4, AST 29, ALT 36, alkaline phosphatase 78, total bilirubin 7.6, albumin 4.2, TSH 1.170. ASSESSMENT AND PLAN: This is a 24-year-old male with a history of suicidal ideation and depression, admitted for the same. Noted incidentally to have elevated bilirubin, direct and total, with no complaints of abdominal pain, nausea or vomiting, decrease in appetite. ACUTE ISSUES: 1. Depression, managed by psychiatrist. 2. Suicidal ideation, currently admitted to inpatient mental health unit. Currently on trazodone for insomnia. 3. Abnormal liver function tests with elevated bilirubin. Patient currently denies any nausea, vomiting, epigastric pain. Will continue to monitor. No signs of anemia to suspect any hemolysis. Monitor for symptoms of abdominal pain, nausea, vomiting, then full workup if symptomatic. 4. Deep vein thrombosis (DVT) prophylaxis. Encourage ambulation. 5. Diet regular. MTDD
[2019-06-17 06:37] VITALS: BP 123/69
--- NOTE | 2019-06-17 09:17 | MHDSPDOC ---
[facility] Discharge Summary Discharge Summary DATE OF ADMISSION: Jun 15, 2019 at 23:37 DATE OF DISCHARGE: 06/17/19 Discharge Willian Mclean MRN: N/A Date of : N/A Date of Service: 06/17/2019 Diagnoses Unspecified psychotic disorder. History of Present Illness The patient a 24-year-old young man with a reported history of schizophrenia presents after reportedly becoming more irritable and pushing one of his coworkers. He was brought in by his boss and friend where he was admitted up in abundance of caution as he was noted to be somewhat started at times but was not admitting to any suicidal or homicidal ideation in the ER. When the patient was met, he had behaved very well on our unit and demonstrated no concerning behaviors. He was odd at times, but appeared to be able to engage in all levels of treatment, amenable and friendly. He was more the picture of amenability. He stated that he was not sure why he was here. He stated that he had gotten upset and pushed someone, but that he had had his history of schizophrenia and that since taking medications those have gone away, but had denied any auditory hallucinations. The patient was observed over the evening with no behavioral problems. He grossly denies all psychiatric symptoms at this time other than the history of psychotic symptoms. Consultants Involved Hospitalist/PCP screening Treatment and Progress On The Unit The patient was admitted and subsequently observed. He was not making any significantly bizarre statements. He was able to attend to his needs. Denied any suicidal or homicidal ideation and was well behaved on the unit. He requested to go, declined medications after discussion, was generally amenable to all interactions and said that he felt he was "fine". At the end of 48 hours, the patient did not meet involuntary criteria for extension of his admission as he denied suicidal or homicidal ideation, had a relatively normal mental status exam and did not appear to be grossly impaired by any psychiatric illness and declined further voluntary admission and thus was discharged in good citlaly. Discharge Assessment 24-year-old man with a history of psychotic illness presents with reported psychotic symptoms, however, they do not appear to be impairing him significan tly enough in order for us to detain him on an involuntary hold past 48 hours and he does not appear to be significantly impaired enough that a treatment over objection would be successful. Mental Status Examination General: Well dressed with good hygiene Speech: Spontaneous and fluid Thought processes: Linear and logical MSK: Smooth and coordinated gait, no signs of tremors or involuntary orofacial movements Thought content: Future orientated Abstract reasoning, and computation: Intact Description of associations: Intact Description of abnormal or psychotic thoughts: Denies any suicidal or homicidal ideation. Denies any auditory or visual hallucinations. Does not appear to be responding to internal stimuli. Does not appear to be endorsing any bizarre or paranoid ideation. Judgment: fair Insight: fair Orientation: Alert and orientated 3 Cognition: Grossly normal Recent and remote memory: Intact Attention span and concentration: Intact Fund of knowledge: Adequate Mood: "okay" Affect: Euthymic with a full range Follow Up The social work team worked during the predischarge meeting in order to evaluate for further issues of lethality address them fully before discharge. They worked on safety planning with the patient's family members in order to ensure that the patient will have a safe and effective discharge. Time Spent The amount of time spent in the coordination of care for this patient was approximately 60 minutes. Vital Signs/I&Os Vital Signs Date Time Temp Pulse Resp B/P (MAP) Pulse Ox O2 Delivery O2 Flow Rate FiO2 06/17/19 06:37 98.6 74 12 123/69 (87) Room Air 06/15/19 23:18 98 Medications No Active Prescriptions or Reported Meds Allergies Coded Allergies: cephalexin (Verified Allergy, Mild, rash/redness, 06/15/19) MALKA MULLIGAN DO Jun 17, 2019 09:17
== END 2019-06-17 11:25 | disposition home or self-care (01) | DRG 751 ==
LOC: M ED 17:53 → M ED INP 23:37 → M PSY 06-16 00:52
PROVIDERS: ADMIT Psychiatry & Neurology Psychiatry; ATTEND Psychiatry & Neurology Addiction Medicine
DX: F29 Unspecified psychosis not due to a substance or known physiological condition (principal); Z86.59 Personal history of other mental and behavioral disorders; Z88.1 Allergy status to other antibiotic agents; F32.9 Major depressive disorder, single episode, unspecified; R94.5 Abnormal results of liver function studies

== ENCOUNTER 2019-07-02 19:21 | Emergency (ER) | payer MEDICAID ==
[2019-07-02 20:13] LABS: HEMATOCRIT 46.9 % (42.0-52.0); HEMOGLOBIN 15.4 g/dl (13.5-17.5); MEAN CORPUSCULAR HEMOGLOBIN 29.9 pg (27.0-33.0); MEAN CORPUSCULAR HGB CONC 32.8 g/dl (32.0-36.5); MEAN CORPUSCULAR VOLUME 91.1 fl (80.0-96.0); PLATELET COUNT, AUTOMATED 271 10^3/uL (150-450); RED BLOOD COUNT 5.15 10^6/uL (4.30-6.10); WHITE BLOOD COUNT 5.8 10^3/uL (4.0-10.0)
[2019-07-02 20:37] LABS: AMPHETAMINES LEVEL URINE NEGATIVE (NEGATIVE); BARBITURATES URINE NEGATIVE (NEGATIVE); BENZODIAZEPINES URINE NEGATIVE (NEGATIVE); CANNABINOIDS URINE NEGATIVE (NEGATIVE); COCAINE METABOLITE URINE NEGATIVE (NEGATIVE); METHADONE URINE NEGATIVE (NEGATIVE); OPIATES URINE NEGATIVE (NEGATIVE); PHENCYCLIDINE URINE NEGATIVE (NEGATIVE)
[2019-07-02 20:49] LABS: ACETAMINOPHEN LEVEL < 2.0 UG/ML (10.0-30.0); ALBUMIN 3.9 GM/DL (3.2-5.2); ALT/SGPT 26 U/L (12-78); BILIRUBIN,DIRECT 0.3 MG/DL (0.0-0.2); BILIRUBIN,TOTAL 1.5 MG/DL (0.2-1.0); BLOOD UREA NITROGEN 12 MG/DL (7-18); CALCIUM LEVEL 9.2 MG/DL (8.5-10.1); CARBON DIOXIDE LEVEL 31 MEQ/L (21-32); CHLORIDE LEVEL 106 MEQ/L (98-107); CREATININE FOR GFR 1.18 MG/DL (0.70-1.30); ETHYL ALCOHOL (ETHANOL) < 0.003 % (0.000-0.010); GLOMERULAR FILTRATION RATE > 60.0 (>60); GLUCOSE, FASTING 95 MG/DL (70-100); POTASSIUM SERUM 4.5 MEQ/L (3.5-5.1); SALICYLATE LEVEL < 1.7 MG/DL (5.0-30.0); SODIUM LEVEL 142 MEQ/L (136-145); TOTAL PROTEIN 7.1 GM/DL (6.4-8.2)
[2019-07-03 00:47] VITALS: BP 149/87
--- NOTE | 2019-07-03 08:02 | ECGEPIP ---
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
== END 2019-07-03 00:54 ==
LOC: M ED 19:21
DX: F23 Brief psychotic disorder (principal); R45.851 Suicidal ideations; F33.9 Major depressive disorder, recurrent, unspecified; F20.9 Schizophrenia, unspecified; Z88.1 Allergy status to other antibiotic agents
CPT/HCPCS: 36415; 80048; 80076; 80307; 84443; 85027; 93005; 99284; G0480

== ENCOUNTER 2024-09-21 23:32 | Inpatient (IN) | payer MEDICAID, OTHER ==
[~2024-09-21] VITALS: Ht 182.9 cm; Wt 62.1 kg
[~2024-09-21 23:32] MED LIST changes: +RISP-106 PO; -RISP2TAB3 PO
[2024-09-22 00:46] LABS: HEMATOCRIT 46.2 % (42.0-52.0); HEMOGLOBIN 15.9 g/dl (13.5-17.5); MEAN CORPUSCULAR HEMOGLOBIN 30.4 pg (27.0-33.0); MEAN CORPUSCULAR HGB CONC 34.4 g/dl (32.0-36.5); MEAN CORPUSCULAR VOLUME 88.3 fl (80.0-96.0); PLATELET COUNT, AUTOMATED 340 10^3/uL (150-450); RED BLOOD COUNT 5.23 10^6/uL (4.30-6.10); WHITE BLOOD COUNT 7.7 10^3/uL (4.0-10.0)
[2024-09-22 00:54] LABS: AMPHETAMINES LEVEL URINE NEGATIVE (NEGATIVE); BARBITURATES URINE NEGATIVE (NEGATIVE); BENZODIAZEPINES URINE NEGATIVE (NEGATIVE); CANNABINOIDS URINE NEGATIVE (NEGATIVE); COCAINE METABOLITE URINE NEGATIVE (NEGATIVE); METHADONE URINE NEGATIVE (NEGATIVE); OPIATES URINE NEGATIVE (NEGATIVE); PHENCYCLIDINE URINE NEGATIVE (NEGATIVE)
[2024-09-22 00:56] LABS: ETHYL ALCOHOL (ETHANOL) 0.003 % (0.000-0.010)
[2024-09-22 00:58] LABS: ALBUMIN 4.2 G/DL (3.2-5.2); ALKALINE PHOSPHATASE 74 U/L (40-129); ALT/SGPT 52 U/L (7.0-40); AST/SGOT 27 U/L (<34); BILIRUBIN,DIRECT 0.5 MG/DL (<0.4); BILIRUBIN,TOTAL 1.6 MG/DL (0.3-1.2); BLOOD UREA NITROGEN 9 MG/DL (9-23); CALCIUM LEVEL 9.3 MG/DL (8.5-10.1); CARBON DIOXIDE LEVEL 26 MMOL/L (20-31); CHLORIDE LEVEL 103 MMOL/L (98-107); CREATININE FOR GFR 0.84 MG/DL (0.70-1.30); GLOMERULAR FILTRATION RATE > 60.0 (>60); GLUCOSE, FASTING 107 MG/DL (60-100); SALICYLATE LEVEL < 3.0 MG/DL (<30); SODIUM LEVEL 140 MMOL/L (136-145); TOTAL PROTEIN 7.8 G/DL (5.7-8.2)
[2024-09-22 01:00] LABS: THYROID STIMULATING HORMONE 3.265 uIU/ML (0.55-4.78)
[2024-09-22] MEDS ORDERED: HOME MED LIST COMPLETE! XX SCH (09:10)
[2024-09-22 13:51] VITALS: BP 137/92; TEMP 97.7; O2SAT 98
[2024-09-22] MEDS ORDERED: MAALOX 30 ML SUSP *UDC PO PRN (19:45)
[2024-09-22] MEDS ORDERED: IBUPROFEN 400MG TAB PO PRN (19:45)
[2024-09-22] MEDS ORDERED: diphenhydrAMINE 25MG CAP PO PRN (19:45)
[2024-09-22] MEDS ORDERED: traZODone 50 MG TAB PO PRN (19:45)
[2024-09-22] MEDS ORDERED: ACETAMINOPHEN 325 MG TAB PO PRN (19:45)
[2024-09-22] MEDS ORDERED: MOM 30ML SUSPENSION UDC PO PRN (19:45)
[2024-09-23 06:29] VITALS: BP 128/75; TEMP 97.6; O2SAT 97
[2024-09-23] MEDS: GABAPENTIN 100 MG CAP PO SCH (09:44)
[2024-09-23 15:58] VITALS: BP 146/92; TEMP 97.3; O2SAT 96
[2024-09-23] MEDS: traZODone 50 MG TAB PO SCH (21:41)
[2024-09-24 06:38] VITALS: BP 105/65; TEMP 97.6; O2SAT 97
[2024-09-24] MEDS: DIVALPROEX 250MG TAB PO SCH (08:50)
[2024-09-24] MEDS: RISPERIDONE 1 MG TAB PO SCH (08:50)
[2024-09-24 16:58] VITALS: BP 135/87; TEMP 97; O2SAT 98
[2024-09-25 06:31] VITALS: BP 158/90; TEMP 97.3; O2SAT 97
[2024-09-25 15:32] VITALS: BP 107/62; TEMP 98.1; O2SAT 99
[2024-09-25] MEDS: risperiDONE 2 MG TAB PO SCH (20:23)
[2024-09-26 06:31] VITALS: BP 119/64; TEMP 98.8; O2SAT 99
[2024-09-26 15:11] VITALS: BP 108/61; TEMP 98; O2SAT 96
[2024-09-27 06:24] VITALS: BP 129/68; TEMP 97.8; O2SAT 97
[2024-09-27 09:00] VITALS: BP 129/68; TEMP 97.8; O2SAT 97
[2024-09-27 15:48] VITALS: BP 128/74; TEMP 98.5; O2SAT 97
[2024-09-27] MEDS: BENZTROPINE 1 MG TAB PO SCH (20:04)
[2024-09-28 06:38] VITALS: BP 140/66; TEMP 97.4; O2SAT 96
[2024-09-28 15:13] VITALS: BP 125/74; TEMP 97.8; O2SAT 99
[2024-09-29 06:27] VITALS: BP 110/65; TEMP 97.1; O2SAT 98
[2024-09-29 16:21] VITALS: BP 116/74; TEMP 98.1; O2SAT 96
[2024-09-29] MEDS: risperiDONE 3 MG TAB PO SCH (20:46)
[2024-09-30 06:11] VITALS: BP 124/61; TEMP 97.7; O2SAT 96
[2024-09-30 15:14] VITALS: BP 120/77; TEMP 97.8; O2SAT 96
[2024-10-01 06:43] VITALS: BP 122/79; TEMP 97.2; O2SAT 93
[2024-10-01 09:29] VITALS: BP 122/79; TEMP 97.2; O2SAT 93
[2024-10-01 17:19] VITALS: BP 134/85; TEMP 97.2; O2SAT 96
[2024-10-02 06:38] VITALS: BP 113/70; TEMP 97.4; O2SAT 96
[2024-10-02 09:00] VITALS: BP 122/79; TEMP 97.2; O2SAT 93
[2024-10-02 15:29] VITALS: BP 95/57; TEMP 98.1; O2SAT 95
[2024-10-03 15:13] VITALS: BP 111/62; TEMP 98.1; O2SAT 96
[2024-10-04 06:20] VITALS: BP 113/61; TEMP 97.5; O2SAT 95
[2024-10-04 15:19] VITALS: BP 111/68; TEMP 97.1; O2SAT 98
[2024-10-05 06:17] VITALS: BP 126/67; TEMP 97.6; O2SAT 97
[2024-10-05 14:54] VITALS: BP 121/73; TEMP 97.2; O2SAT 95
[2024-10-06 06:31] VITALS: BP 130/76; TEMP 97.4; O2SAT 95
[2024-10-07 06:24] VITALS: BP 120/55; TEMP 97.9; O2SAT 96
[2024-10-07 11:32] LABS: ALBUMIN 3.6 G/DL (3.2-5.2); ALKALINE PHOSPHATASE 57 U/L (40-129); ALT/SGPT 24 U/L (7.0-40); AST/SGOT 14 U/L (<34); BILIRUBIN,DIRECT 0.7 MG/DL (<0.4); BILIRUBIN,TOTAL 2.1 MG/DL (0.3-1.2); BLOOD UREA NITROGEN 12 MG/DL (9-23); CALCIUM LEVEL 8.9 MG/DL (8.5-10.1); CARBON DIOXIDE LEVEL 30 MMOL/L (20-31); CHLORIDE LEVEL 107 MMOL/L (98-107); CREATININE FOR GFR 0.95 MG/DL (0.70-1.30); GLOMERULAR FILTRATION RATE > 60.0 (>60); GLUCOSE, FASTING 121 MG/DL (60-100); POTASSIUM SERUM 4.2 MMOL/L (3.5-5.1); SODIUM LEVEL 142 MMOL/L (136-145)
[2024-10-07] MEDS ORDERED: ONDANSETRON 4MG TAB PO PRN (13:00)
[2024-10-07 15:08] VITALS: BP 106/64; TEMP 97.4; O2SAT 96
[2024-10-08 06:34] VITALS: BP 105/65; TEMP 98; O2SAT 96
[2024-10-08 15:08] VITALS: BP 109/70; TEMP 97.9; O2SAT 96
[2024-10-09 06:33] VITALS: BP 107/55; TEMP 97.4; O2SAT 97
[2024-10-09 15:19] VITALS: BP 118/67; TEMP 97.8; O2SAT 95
[2024-10-10 06:38] VITALS: BP 105/55; TEMP 97; O2SAT 96
[2024-10-10] MEDS: NICOTINE 21MG/24HR 1 EA TRANSDERMAL TD SCH (09:00)
[2024-10-10 15:06] VITALS: BP 110/61; TEMP 97.7; O2SAT 97
[2024-10-11 06:46] VITALS: BP 106/55; TEMP 97.6; O2SAT 97
[2024-10-11 16:50] VITALS: BP 122/67; TEMP 98.6; O2SAT 95
[2024-10-12 06:56] VITALS: BP 110/54; TEMP 97.4; O2SAT 99
[2024-10-12] MEDS ORDERED: DEPA250T32 PO (07:22)
[2024-10-12] MEDS ORDERED: HYDR-3363 PO (07:22)
[2024-10-12] MEDS ORDERED: BENZ1TAB5 PO (07:22)
[2024-10-12] MEDS ORDERED: RISP3TAB20 PO (07:22)
[2024-10-13] MEDS ORDERED: HYDR-3363 PO (11:55)
[2024-10-13] MEDS ORDERED: DEPA250T32 PO (11:55)
[2024-10-13] MEDS ORDERED: RISP3TAB77 PO (11:55)
[2024-10-13] MEDS ORDERED: BENZ1TAB5 PO (11:55)
== END 2024-10-12 12:11 | disposition home or self-care (01) | DRG 750 ==
LOC: M ED 23:32 → M ED INP 09-22 12:11 → M PSY 09-22 13:49
PROVIDERS: ADMIT Psychiatry & Neurology Psychiatry; ATTEND Psychiatry & Neurology Psychiatry
DX: F20.9 Schizophrenia, unspecified (principal); F41.9 Anxiety disorder, unspecified; Z88.1 Allergy status to other antibiotic agents